=== PATIENT | male | born 1980 | race Caucasian/White ===

== ENCOUNTER 2016-11-26 19:24 | Emergency (ER) | payer MEDICAID ==
[2016-11-26 23:15] VITALS: BP 125/82
== END 2016-11-26 23:15 | disposition home or self-care (01) ==
LOC: ED 19:24
DX: R50.9 Fever, unspecified (principal)
CPT/HCPCS: 87804

== ENCOUNTER 2019-09-13 15:51 | Emergency (ER) | payer MEDICAID ==
[~2019-09-13] VITALS: Ht 160 cm; Wt 83.9 kg
[2019-09-13 15:58] VITALS: BP 138/88; Ht 160 cm; Wt 83.9 kg
== END 2019-09-13 16:29 | disposition home or self-care (01) ==
LOC: ED 15:51
DX: J06.9 Acute upper respiratory infection, unspecified (principal)
CPT/HCPCS: J1100; J1885

== ENCOUNTER 2020-01-04 10:34 | Emergency (ER) | payer MEDICAID ==
[~2020-01-04] VITALS: Ht 160 cm; Wt 84.4 kg
[2020-01-04 10:41] VITALS: Ht 160 cm; Wt 84.4 kg
[2020-01-04 11:48] VITALS: BP 162/95
== END 2020-01-04 11:48 | disposition home or self-care (01) ==
LOC: ED 10:34
DX: S20.212A Contusion of left front wall of thorax, initial encounter (principal); W22.8XXA Striking against or struck by other objects, initial encounter; Y93.89 Activity, other specified; Y92.89 Other specified places as the place of occurrence of the external cause; Y99.8 Other external cause status

== ENCOUNTER 2020-10-18 10:21 | Emergency (ER) | payer MEDICAID ==
[~2020-10-18] VITALS: Ht 162.6 cm; Wt 83.9 kg
[2020-10-18 10:27] VITALS: BP 160/100; Ht 162.6 cm; Wt 83.9 kg
[2020-10-18 11:16] LABS: microscopic required? NO
[2020-10-18 11:21] LABS: UA SPECIFIC GRAVITY 1.025 (1.005-1.035); urine erythrocyte NEGATIVE (NEGATIVE)
== END 2020-10-18 11:39 | disposition home or self-care (01) ==
LOC: ED 10:21
PROVIDERS: Emergency Medicine
DX: N48.1 Balanitis (principal); A64 Unspecified sexually transmitted disease
CPT/HCPCS: 87491; 87591; J0696